=== PATIENT | female | born 2000 | race African-American/Black ===

== ENCOUNTER 2024-03-30 14:16 | Emergency (ER) | payer SELFPAY ==
[2024-03-30] MEDS ORDERED: LIDOCAINE 1% MPF 5 ML VIAL ONE (15:38)
[2024-03-30] MEDS ORDERED: SMZ./TMP. 800/160 MG TABLET ONE (15:39)
--- NOTE | 2024-03-30 16:20 | RAD REPORT ---
EXAM:Extremity Nonvascular Complete CLINICAL HISTORY: Pain buttocks TECHNIQUE: Sonographic evaluation of the buttocks performed FINDINGS: 1.3 x 1 x 0.5 cm heterogeneous fluid collection right buttocks. Increased peripheral blood flow. 0.7 cm heterogeneous fluid collection left buttocks increased peripheral blood flow. It is less fluid -filled then the right buttock mass. IMPRESSION: 1.3 cm heterogeneous fluid collection right buttocks consistent with abscess 0.7 cm heterogeneous fluid collection consistent with early abscess.
--- NOTE | 2024-03-30 17:15 | EDPHYS ---
Physician Documentation [facility] Name: Carlton Munguia Age: 24 yrs Sex: Female : 2000 Arrival Date: 03/30/2024 Time: 14:16 Bed 18 Private MD: ED Physician Jaime Shearer HPI: 03/30 17:25 This 24 yrs old Black Female presents to ER via Ambulatory with complaints of Abscess. kb 17:25 Pt is a 24 year old female who presents for an abscess to right buttock (at pantyline) kb that started one week ago and abscess to left buttock (at panty line) that started 3 days ago. States she has been trying to drain them but they seem to be getting worse. Denies fever. Historical: - Allergies: 14:33 Vancomycin; Affected kidney function; cm10 - Home Meds: 14:33 None [Active]; cm10 - PMHx: 14:33 None; cm10 - PSHx: 14:33 None; cm10 - Immunization history:: Adult Immunizations up to date. - Infectious Disease History:: Denies. - Social history:: Smoking status: Patient reports the use of cigarette tobacco products, cigars. ROS: 17:22 Constitutional: As per HPI kb Exam: 17:22 Constitutional: This is a well developed, well nourished patient who is awake, alert, kb and in no acute distress. Head/Face: Normocephalic, atraumatic. ENT: Moist Mucous membranes Cardiovascular: Regular rate Respiratory: Respirations even and unlabored. No increased work of breathing. Talking in full sentences MS/ Extremity: Pulses equal, no cyanosis. Neurovascular intact. Full, normal range of motion. Neuro: Awake and alert, GCS 15, oriented to person, place, time, and situation. 17:22 Skin: abscess, that is small, of the left gluteus myriam and right gluteus myriam, with fluctuance, that is mild, with induration, with surrounding cellulitis, that is mild, Vital Signs: 14:31 BP 127 / 89; Pulse 83; Resp 16; Temp 98.9(O); Pulse Ox 100% on R/A; Weight 77.11 kg; cm10 Height 5 ft. 3 in. ; Pain 10/10; 17:23 BP 126 / 88; Pulse 78; Resp 16; Pulse Ox 100% on R/A; db 14:31 Body Mass Index 30.11 (77.11 kg, 160.02 cm) cm10 14:31 Pain Scale: Adult cm10 Procedures: 17:22 I \T\ D: Incision and drainage was performed for an abscess of the right gluteus myriam kb Prepped with Betadine, Anesthetized with 1 ml's 1% Lidocaine. Incised with #10 blade. Drained moderate amount purulent fluid. Dressing: sterile 4x4 gauze, the patient tolerated the procedure well. 17:23 I \T\ D: Incision and drainage was performed for an abscess of the left gluteus myriam kb Prepped with Betadine, Anesthetized with 0.5 ml's 1% Lidocaine. Incised with abscess opened when lidocaine injected, no incision made. Drained small amount purulent fluid. Dressing: sterile 4x4 gauze, the patient tolerated the procedure well. MDM: 14:25 Medical Screening Exam initiated kb 17:24 Differential diagnosis: abscess, allergic reaction, cellulitis, insect bite. Data kb reviewed: vital signs, nurses notes. Counseling: I had a detailed discussion with the patient and/or guardian regarding the historical points, exam findings, and any diagnostic results supporting the discharge/admit diagnosis, the need for outpatient follow up, a general surgeon, to return to the emergency department if symptoms worsen or persist or if there are any questions or concerns that arise at home. 03/30 16:07 Order name: Extremity Nonvascular Complete; Complete Time: 16:23 EDHI 03/30 15:25 [facility] place pt in gown please; Complete Time: 15:36 kb 03/30 15:35 Order name: I\T\D Setup; Complete Time: 15:36 kb Administered Medications: 15:43 Drug: Lidocaine Infiltration (1 %) 1 vials 5 ml Infiltration once; to bedside {Note: db PLACED AT BEDSIDE FOR PROVIDER.} Volume: 5 ml; Route: Infiltration; 17:23 Follow up: Response: No adverse reaction db 15:43 Drug: Trimethoprim-Sulfamethoxazole PO (160 mg-800 mg (DS) 1 tablet PO once Route: PO; db 17:23 Follow up: Response: No adverse reaction db Disposition Summary: 03/30/24 17:15 Discharge Ordered Notes: Location: Home kb Condition: Stable kb Diagnosis - Cutaneous abscess of buttock - right and left kb Followup: kb - With: Emergency Department - When: As needed - Reason: Worsening of condition Followup: kb - With: Private Physician - When: 2 - 3 days - Reason: Recheck today's complaints, Continuance of care, Re-evaluation by your physician Discharge Instructions: - Discharge Summary Sheet kb - Skin Abscess, [id number] kb - Incision and Drainage, Care After kb Forms: - Work release form kb - Medication Reconciliation Form kb - Antibiotic Education kb - Prescription Opioid Use kb - Patient Portal Instructions kb - Leadership Thank You Letter kb Prescriptions: - Bactrim DS 800-160 mg Oral Tablet - take 1 tablet ORAL route every 12 hours for 10 days; 20 tablet; Refills: 0, kb Product Selection Permitted Signatures: Dispatcher [employer] EDLaurie Ferrera, SANJAY-C SANJAY-Mary Avila RN RN db Twila Barillas RN RN cm10 Corrections: (The following items were deleted from the chart) 15:36 15:36 Extrmty Nonvasular Limited+[id number] ordered. [facility] 17:24 17:22 I \T\ D: Incision and drainage was performed for an abscess of the left right kb gluteus myriam Prepped with Betadine, Anesthetized with 1 ml's 1% Lidocaine. Incised with #10 blade. Drained moderate amount purulent fluid. Dressing: sterile 4x4 gauze, the patient tolerated the procedure well, kb
--- NOTE | 2024-03-30 17:15 | ER ---
Nurse's Notes [facility] Name: Carlton Munguia Age: 24 yrs Sex: Female : 2000 Arrival Date: 03/30/2024 Time: 14:16 Bed 18 Private MD: Diagnosis: Cutaneous abscess of buttock-right and left Presentation: 03/30 14:31 Chief complaint: Patient states: Abscess to bilateral buttocks onset 1 week ago. cm10 Coronavirus screen: Client denies travel out of the [place] in the last 14 days. Ebola Screen: Patient denies travel to an Ebola-affected area in the 21 days before illness onset. No symptoms or risks identified at this time. Initial Sepsis Screen: Does the patient meet any 2 criteria? No. Patient's initial sepsis screen is negative. Does the patient have a suspected source of infection? No. Patient's initial sepsis screen is negative. Risk Assessment: Do you want to hurt yourself or someone else? Patient reports no desire to harm self or others. Onset of symptoms was March 23, 2024. 14:31 Method Of Arrival: Ambulatory 10 14:31 Acuity: KEARA 4 cm10 Triage Assessment: 14:34 General: Appears in no apparent distress. uncomfortable, Behavior is calm, cooperative. cm10 Pain: Complains of pain in buttocks Pain currently is 10 out of 10 on a pain scale. Neuro: No deficits noted. Level of Consciousness is awake, alert, obeys commands, Oriented to person, place, time, situation, Appropriate for age. Respiratory: No deficits noted. Airway is patent Respiratory effort is even, unlabored, Respiratory pattern is regular, symmetrical. Historical: - Allergies: 14:33 Vancomycin; Affected kidney function; cm10 - Home Meds: 14:33 None [Active]; cm10 - PMHx: 14:33 None; cm10 - PSHx: 14:33 None; cm10 - Immunization history:: Adult Immunizations up to date. - Infectious Disease History:: Denies. - Social history:: Smoking status: Patient reports the use of cigarette tobacco products, cigars. Screenin:23 [facility] ED Fall Risk Assessment (Adult) History of falling in the last 3 months, db including since admission No falls in past 3 months (0 pts) Confusion or Disorientation No (0 pts) Intoxicated or Sedated No (0 pts) Impaired Gait No (0 pts) Mobility Assist Device Used No (0 pt) Altered Elimination No (0 pt) Score/Fall Risk Level 0 - 2 = Low Risk Oriented to surroundings, Maintained a safe environment. Abuse screen: Denies threats or abuse. Denies injuries from another. Nutritional screening: No deficits noted. Tuberculosis screening: No symptoms or risk factors identified. Assessment: 15:34 Reassessment: Patient appears in no apparent distress at this time. Patient and/or db family updated on plan of care and expected duration. Pain level reassessed. Patient is alert, oriented x 3, equal unlabored respirations, skin warm/dry/pink. General: Appears in no apparent distress. comfortable, Behavior is calm, cooperative. Pain: Complains of pain in buttocks. Neuro: Level of Consciousness is awake, alert, obeys commands, Oriented to person, place, time, situation. Respiratory: Airway is patent Respiratory effort is even, unlabored, Respiratory pattern is regular, symmetrical. Derm: Abscess located on buttocks. 17:23 Reassessment: Patient appears in no apparent distress at this time. Patient and/or db family updated on plan of care and expected duration. Pain level reassessed. Patient is alert, oriented x 3, equal unlabored respirations, skin warm/dry/pink. Vital Signs: 14:31 BP 127 / 89; Pulse 83; Resp 16; Temp 98.9(O); Pulse Ox 100% on R/A; Weight 77.11 kg; cm10 Height 5 ft. 3 in. ; Pain 10/10; 17:23 BP 126 / 88; Pulse 78; Resp 16; Pulse Ox 100% on R/A; db 14:31 Body Mass Index 30.11 (77.11 kg, 160.02 cm) cm10 14:31 Pain Scale: Adult cm10 ED Course: 14:19 Patient arrived in ED. mr 14:25 [facility]ie Stewart FNP-C [facility] kb 14:25 Jaime Shearer MD is Attending Physician. kb 14:33 Triage completed. cm10 14:34 Arm band placed on right wrist. Patient placed in waiting room. cm10 15:34 Mary Jacobo RN is Primary Nurse. db 15:43 Assist provider with I \T\ D: Set up I\T\D tray. db 16:02 Patient moved back from ultrasound. db 16:07 Extremity Nonvascular Complete In Process Unspecified. EDMS 17:23 Patient has correct armband on for positive identification. Bed in low position. Call db light in reach. Side rails up X 1. Provided Education on: DISCHARGE, HOME CARE AND FOLLOWUP. Pillow given. 17:23 Patient did not have IV access during this emergency room visit. db 17:23 Assist provider with I \T\ D: of an abscess on Performed by Laurie MAN Patient db tolerated well. Administered Medications: 15:43 Drug: Lidocaine Infiltration (1 %) 1 vials 5 ml Infiltration once; to bedside {Note: db PLACED AT BEDSIDE FOR PROVIDER.} Volume: 5 ml; Route: Infiltration; 17:23 Follow up: Response: No adverse reaction db 15:43 Drug: Trimethoprim-Sulfamethoxazole PO (160 mg-800 mg (DS) 1 tablet PO once Route: PO; db 17:23 Follow up: Response: No adverse reaction db Medication: 17:23 VIS not applicable for this client. db Outcome: 17:15 Discharge ordered by . annie 17:23 Discharged to home ambulatory, db 17:23 Condition: stable 17:23 Discharge instructions given to patient, Instructed on discharge instructions, follow up and referral plans. Prescriptions given X 1, 17:25 Patient left the ED. db Signatures: Dispatcher [employer] Laurie Jason FNP-C FNP-Amber Calloway, Reg Reg mr Mary Jacobo, RN RN Twila Galvan RN RN cm10
[2024-03-31] VITALS: TEMP 98.9; O2SAT 100
[2024-03-31 00:17] VITALS: BP 126/88
== END 2024-03-30 17:25 | disposition home or self-care (01) ==
LOC: ER 14:16
PROC: 0H98XZZ Drainage of Buttock Skin, External Approach (ICD-10-PCS; principal; 2024-03-30)
DX: L02.31 Cutaneous abscess of buttock (principal)
CPT/HCPCS: 76881; J2001